=== PATIENT | female | born 2000 | race Caucasian/White ===

== ENCOUNTER 2021-03-31 10:16 | Emergency (ER) | payer OTHER ==
[2021-03-31 11:24] LABS: BASOPHIL 0.4 % (0-2); EOSINOPHIL 0.9 % (0-5); HGB 15.2 g/dl (12.5-16.0); LYMPHOCYTE 32.1 % (15-48); MCH 30.2 pg (25.0-31.0); MCHC 33.8 g/dL (32.0-36.0); MCV 89.3 fL (78.0-100.0); MPV 12.7 fL (6.0-9.5); NEUTROPHIL 56.3 % (41-80); NRBC 0; PLT 189 K/uL (150-400); RBC 5.04 M/uL (4.20-5.40); RDW 11.9 % (11.5-14.0); WBC 7.6 K/uL (4.0-10.5)
[2021-03-31 11:41] LABS: ALBUMIN 4.3 g/dL (3.4-5.0); BILIRUBIN - TOTAL 0.2 mg/dL (0.2-1.0); CREATININE 0.77 mg/dL (0.51-0.95); POTASSIUM 3.6 mmol/L (3.5-5.1); TOTAL PROTEIN 7.3 g/dL (6.4-8.2)
== END 2021-03-31 14:51 | disposition home or self-care (01) ==
LOC: FER 10:16
PROVIDERS: Emergency Medicine
DX: J45.901 Unspecified asthma with (acute) exacerbation (principal); E66.9 Obesity, unspecified; Z20.822 Contact with and (suspected) exposure to COVID-19; Z88.0 Allergy status to penicillin
CPT/HCPCS: 36415; 71045; 71275; 80053; 84484; 85025; 85379; 93005; Q9967; U0002